=== PATIENT | female | born 1995 | race African-American/Black ===

== ENCOUNTER 2020-11-29 06:36 | Emergency (ER) | payer MEDICAID ==
[2020-11-29] MEDS ORDERED: Sodium Chloride 0.9% 10 ML Syringe FLUSH PRN (06:59)
[2020-11-29] MEDS ORDERED: Ondansetron 4 MG/2 ML SDV IVPUSH ONE (06:59)
[2020-11-29] MEDS ORDERED: Sodium Chloride 0.9% 1,000 ML IV STA (06:59)
[2020-11-29] MEDS ORDERED: HYDROmorphone 0.5 MG/0.5 ML Syringe IVPUSH ONE (07:00)
--- NOTE | 2020-11-29 07:06 | EDM.PDOC ---
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 This all started this weekend. Her LNMP was October 26. She was supposed to get he period this weekend and she felt like she was but nothing happened. On Friday she developed nausea and pelvic and abdominal cramping. This has continued. She has no fever, chills, cough, chest pain, shortness of breath, vomiting, diarrhea or dysuria. She does say that she has some urinary frequency. She may be . Onset: Gradual Duration: Day(s): Location: Reports: Abdomen, Pelvis Quality: Reports: Other (cramping) Severity: Severe Improves with: Reports: None Worsens with: Reports: None Associated Symptoms: Reports: Nausea/Vomiting. 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 Denies: Diarrhea, Vomiting : Reports: No Symptoms Musculoskeletal: Reports: No Symptoms Skin: Reports: No Symptoms Neurological: Reports: No Symptoms ED EXAM, GI/ABD - Physical Exam Exam: See Below Exam Limited By: No Limitations General Appearance: Alert, No Apparent Distress Ears: Normal External Exam Nose: Normal Inspection Head: Atraumatic, Normocephalic Neck: Normal Inspection Respiratory/Chest: No Respiratory Distress, Lungs Clear, Normal Breath Sounds Cardiovascular: Regular Rate, Rhythm, No Edema, No Murmur GI/Abdominal Exam: Soft, No Organomegaly, No Mass, Tender (Moderate generalized abdominal pain more severe in the left lower abdomen) Course - Vital Signs Last Recorded V/S: Last Vital Signs Temp 98.6 F 11/29/20 06:46 Pulse 60 11/29/20 06:46 Resp 20 11/29/20 06:46 BP 133/89 11/29/20 06:46 Pulse Ox 100 11/29/20 06:46 - Orders/Labs/Meds Orders: Active Orders 24 hr Category Date Time Status Peripheral IV Care [RC] . DIRECTED Care 11/29/20 07:00 Active Sodium Chloride 0.9% [Saline Flush] Med 11/29/20 06:59 Active 10 ml FLUSH ASDIRECTED PRN ED Antiemetic Medication Reflex [OM.PC] Stat Oth 11/29/20 07:00 Ordered Peripheral IV Insertion Adult [OM.PC] Stat Oth 11/29/20 06:59 Ordered Medication Orders Sodium Chloride (Sodium Chloride 0.9% 10 Ml Syringe) 10 ml FLUSH ASDIRECTED PRN PRN Reason: Keep Vein Open Last Admin: 11/29/20 07:28 Dose: 10 ml Documented by: FRANCISCO Labs: Laboratory Tests 11/29/20 11/29/20 11/29/20 Range/Units 07:15 07:15 07:20 WBC 4.98 (3.98-10.04) K/mm3 RBC 4.34 (3.98-5.22) M/mm3 Hgb 10.8 L (11.2-15.7) gm/dl Hct 34.6 (34.1-44.9) % MCV 79.7 (79.4-94.8) fl MCH 24.9 L (25.6-32.2) pg MCHC 31.2 L (32.2-35.5) g/dl RDW Std Deviation 40.4 (36.4-46.3) fL Plt Count 418 H (182-369) K/mm3 MPV 9.1 L (9.4-12.3) fl Neut % (Auto) 46.6 (34.0-71.1) % Lymph % (Auto) 43.8 (19.3-51.7) % [place] % (Auto) 7.2 (4.7-12.5) % Eos % (Auto) 1.8 (0.7-5.8) Baso % (Auto) 0.6 (0.1-1.2) % Neut # (Auto) 2.32 (1.56-6.13) K/mm3 Lymph # (Auto) 2.18 (1.18-3.74) K/mm3 [place] # (Auto) 0.36 (0.24-0.36) K/mm3 Eos # (Auto) 0.09 (0.04-0.36) K/mm3 Baso # (Auto) 0.03 (0.01-0.08) K/mm3 Sodium (136-145) mEq/L Potassium (3.5-5.1) mEq/L Chloride (98-107) mEq/L Carbon Dioxide (21-32) mEq/L Anion Gap (5-15) BUN (7-18) mg/dL Creatinine (0.55-1.02) mg/dL Est Cr Clr Drug Dosing mL/min Estimated GFR (MDRD) (>60) mL/min BUN/Creatinine Ratio (14-18) Glucose (70-99) mg/dL Calcium (8.5-10.1) mg/dL Total Bilirubin (0.2-1.0) mg/dL AST (15-37) U/L ALT (14-59) U/L Alkaline Phosphatase (46-116) U/L Total Protein (6.4-8.2) g/dl Albumin (3.4-5.0) g/dl Globulin gm/dL Albumin/Globulin Ratio (1-2) Lipase (73-393) U/L Urine Color Yellow (Yellow) Urine Appearance Clear (Clear) Urine pH 7.5 (5.0-8.0) Ur Specific [place] 1.020 (1.005-1.030) Urine Protein Negative (Negative) Urine Glucose (UA) Negative (Negative) Urine Ketones Negative (Negative) Urine Occult Blood 1+ H (Negative) Urine Nitrite Negative (Negative) Urine Bilirubin Negative (Negative) Urine Urobilinogen 1.0 (0.2-1.0) Ur Leukocyte Esterase Negative (Negative) Urine RBC 0-5 (0-5) /hpf Urine WBC 0-5 (0-5) /hpf Ur Squamous Epith Cells 0-5 (0-5) /hpf Amorphous Sediment Few H (NOT SEEN) /hpf Urine Bacteria Few (FEW) /hpf Urine Mucus Few (FEW) /hpf Urine HCG, Qual Negative (NEGATIVE) 11/29/20 Range/Units 07:20 WBC (3.98-10.04) K/mm3 RBC (3.98-5.22) M/mm3 Hgb (11.2-15.7) gm/dl Hct (34.1-44.9) % MCV (79.4-94.8) fl MCH (25.6-32.2) pg MCHC (32.2-35.5) g/dl RDW Std Deviation (36.4-46.3) fL Plt Count (182-369) K/mm3 MPV (9.4-12.3) fl Neut % (Auto) (34.0-71.1) % Lymph % (Auto) (19.3-51.7) % [place] % (Auto) (4.7-12.5) % Eos % (Auto) (0.7-5.8) Baso % (Auto) (0.1-1.2) % Neut # (Auto) (1.56-6.13) K/mm3 Lymph # (Auto) (1.18-3.74) K/mm3 [place] # (Auto) (0.24-0.36) K/mm3 Eos # (Auto) (0.04-0.36) K/mm3 Baso # (Auto) (0.01-0.08) K/mm3 Sodium 142 (136-145) mEq/L Potassium 3.5 (3.5-5.1) mEq/L Chloride 105 (98-107) mEq/L Carbon Dioxide 27 (21-32) mEq/L Anion Gap 13.5 (5-15) BUN 8 (7-18) mg/dL Creatinine 0.8 (0.55-1.02) mg/dL Est Cr Clr Drug Dosing 80.41 mL/min Estimated GFR (MDRD) > 60 (>60) mL/min BUN/Creatinine Ratio 10.0 L (14-18) Glucose 136 H (70-99) mg/dL Calcium 8.8 (8.5-10.1) mg/dL Total Bilirubin 0.3 (0.2-1.0) mg/dL AST 17 (15-37) U/L ALT 33 (14-59) U/L Alkaline Phosphatase 85 (46-116) U/L Total Protein 7.1 (6.4-8.2) g/dl Albumin 3.6 (3.4-5.0) g/dl Globulin 3.5 gm/dL Albumin/Globulin Ratio 1.0 (1-2) Lipase 82 (73-393) U/L Urine Color (Yellow) Urine Appearance (Clear) Urine pH (5.0-8.0) Ur Specific [place] (1.005-1.030) Urine Protein (Negative) Urine Glucose (UA) (Negative) Urine Ketones (Negative) Urine Occult Blood (Negative) Urine Nitrite (Negative) Urine Bilirubin (Negative) Urine Urobilinogen (0.2-1.0) Ur Leukocyte Esterase (Negative) Urine RBC (0-5) /hpf Urine WBC (0-5) /hpf Ur Squamous Epith Cells (0-5) /hpf Amorphous Sediment (NOT SEEN) /hpf Urine Bacteria (FEW) /hpf Urine Mucus (FEW) /hpf Urine HCG, Qual (NEGATIVE) Meds: Medications Generic Name Dose Route Start Last Admin Trade Name Yuliana PRN Reason Stop Dose Admin Sodium Chloride 10 ml 11/29/20 06:59 11/29/20 07:28 Sodium Chloride 0.9% 10 Ml Syringe FLUSH 10 ml ASDIRECTED PRN Administration Keep Vein Open Discontinued Medications Generic Name Dose Route Start Last Admin Trade Name Yuliana PRN Reason Stop Dose Admin Hydromorphone HCl 0.5 mg 11/29/20 07:00 11/29/20 07:28 Hydromorphone 0.5 Mg/0.5 Ml Syringe IVPUSH 11/29/20 07:01 0.5 mg ONETIME ONE Administration Sodium Chloride 1,000 mls @ 1,000 mls/hr 11/29/20 06:59 11/29/20 07:28 Normal Saline IV 11/29/20 07:58 1,000 mls/hr .BOLUS STA Administration Ondansetron HCl 4 mg 11/29/20 06:59 11/29/20 07:29 Ondansetron 4 Mg/2 Ml Sdv IVPUSH 11/29/20 07:00 4 mg ONETIME ONE Administration - Re-Assessments/Exams Free Text/Narrative Re-Assessment/Exam: 11/29/20 07:05 I ordered an IV NS 1L bolus, zofran 4mg IV, dilaudid 0.5mg IV, labs and UA. 11/29/20 09:59 Her CBC and CMP look good. Her UA shows no UTI. She tells me about 2 weeks ago she was evaluated at a clinic in [facility] and she was positive for trich. She has not felt 100% since then. I did a wet prep and it was negative. My nurse did g et her in to see Dr Jaramillo tomorrow. Departure - Departure Time of Disposition: 10:00 Disposition: Home, Self-Care 01 Condition: Good Clinical Impression: Pelvic pain - Discharge Information *PRESCRIPTION DRUG MONITORING PROGRAM REVIEWED*: Not Applicable *COPY OF PRESCRIPTION DRUG MONITORING REPORT IN PATIENT ELIECER: Not Applicable Prescriptions: Hydrocodone/Acetaminophen [Hydrocodone-Acetamin 5-325 mg] 1 - 2 each PO Q6H PRN #15 tablet PRN Reason: Pain Referrals: PCP,None [Primary Care Provider] - Delmer Jaramillo MD [Physician] - 1 Day Forms: ED Department Discharge, ED Return to Work/School Form Additional Instructions: Drink plenty of fluids. Take tylenol or motrin for pain. If that does not help, try the hydrocodone. Follow up with Dr Jaramillo tomorrow at 2pm. Check in at 1:30 tomorrow. Please return if you are worse. Sepsis Event Note (ED) - Evaluation Sepsis Screening Result: No Definite Risk - Focused Exam Vital Signs: Vital Signs Temp Pulse Resp BP Pulse Ox 11/29/20 06:46 98.6 F 60 20 133/89 100 - My Orders Last 24 Hours: My Active Orders 11/29/20 06:59 Sodium Chloride 0.9% [Saline Flush] 10 ml FLUSH ASDIRECTED PRN Peripheral IV Insertion Adult [OM.PC] Stat 11/29/20 07:00 Peripheral IV Care [RC] . DIRECTED ED Antiemetic Medication Reflex [OM.PC] Stat - Assessment/Plan Last 24 Hours: My Active Orders 11/29/20 06:59 Sodium Chloride 0.9% [Saline Flush] 10 ml FLUSH ASDIRECTED PRN Peripheral IV Insertion Adult [OM.PC] Stat 11/29/20 07:00 Peripheral IV Care [RC] . DIRECTED ED Antiemetic Medication Reflex [OM.PC] Stat
== END 2020-11-29 10:20 | disposition home or self-care (01) ==
LOC: JD.ED 06:36
DX: R10.2 Pelvic and perineal pain (principal); Z88.0 Allergy status to penicillin
CPT/HCPCS: 36415; 80053; 81001; 81025; 83690; 85025; 87210; 87808; 96374; 96375; 99284; J1170; J2405; J7030; 99283

== ENCOUNTER 2021-01-22 13:42 | Emergency (ER) | payer MEDICAID ==
--- NOTE | 2021-01-22 15:35 | EDM.PDOC ---
ED HPI GENERAL MEDICAL PROBLEM - General Chief Complaint: Lower Extremity Injury/Pain Stated Complaint: LEFT LEG PAIN Time Seen by Provider: 01/22/21 15:20 Source of Information: Reports: Patient History Limitations: Reports: No Limitations - History of Present Illness INITIAL COMMENTS - FREE TEXT/NARRATIVE: 25-year-old female presents to the ED with chief complaint of severe pain in her left anterior medial thigh. Patient states no she knows of no injury or trauma. Started to have left quadriceps muscle pain yesterday which is progressed to the point that she can barely walk today. Leg has given out on her twice today causing her to fall once. She banged up her left lateral hip over the greater trochanteric process when she fell this morning. Pain is primarily felt throughout the quadriceps musculature anterior aspect of the leg but is particularly very tender medially. She has mild pain in the quadriceps when she flexes or dorsiflexes her left ankle as well. She states she is walking straight legged. 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 She is not using any oral contraceptives. Onset: Gradual Onset Date: 01/21/21 Duration: Hour(s):, Getting Worse Location: Reports: Lower Extremity, Left (Primarily in the distribution of the quadriceps) Quality: Reports: Ache ( muscles but worse medial aspect of the leg.), Throbbing Severity: Moderate Improves with: Reports: Rest Worsens with: Reports: Other (Worse with attempt to try and walk. She cannot) Context: Reports: Other (No known injury or trauma). Denies: Activity ( lift it high enough to go up a stair.), Exercise, Lifting, Sick Contact, Trauma Associated Symptoms: Reports: No Other Symptoms. Denies: Confusion, Chest Pain, Cough, cough w sputum, Diaphoresis, Fever/Chills, Headaches, Loss of Appetite, Malaise, Nausea/Vomiting, Rash, Seizure, Shortness of Breath, Syncope, Weakness Treatments LAST TRIMMER: Reports: Acetaminophen Left Leg Pain Score (Numeric/FACES): 7 - Related Data Allergies Allergy/AdvReac Type Severity Reaction Status Date / Time amoxicillin Allergy Severe Itching Verified 01/22/21 13:51 Home Meds: Home Meds . 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: Reports: Endocrine/Metabolic History: Reports: Obesity/BMI 30+ - Infectious Disease History Infectious Disease History: Reports: None - Past Surgical History Musculoskeletal Surgical History: Reports: Other (See Below) Other Musculoskeletal Surgeries/Procedures:: Right Leg Surgery Social & Family History - Tobacco Use Tobacco Use Status *Q: Never Tobacco User - Caffeine Use Caffeine Use: Reports: Energy Drinks - Recreational Drug Use Recreational Drug Use: No - Living Situation & Occupation Living situation: Reports: Occupation: Employed Review of Systems - Review of Systems Review Of Systems: See Below Constitutional: Reports: No Symptoms Eyes: Reports: No Symptoms Ears: Reports: No Symptoms Nose: Reports: No Symptoms Mouth/Throat: Reports: No Symptoms Respiratory: Reports: No Symptoms Cardiovascular: Reports: No Symptoms GI/Abdominal: Reports: No Symptoms Genitourinary: Reports: No Symptoms Musculoskeletal: Reports: Other (Left anterior leg pain in the distribution of the quadriceps musculature). Denies: Back Pain Skin: Reports: No Symptoms Neurological: Reports: No Symptoms Psychiatric: Reports: No Symptoms ED EXAM, GENERAL - Physical Exam Exam: See Below Exam Limited By: No Limitations General Appearance: Alert, WD/WN, No Apparent Distress, Other (Temperature is 36.0. Heart rate 89 is sinus respiratory to 16 with O2 sats of 99% room air BP is 122/76) Eye Exam: Bilateral Eye: Normal Inspection (No blepharal pallor or scleral icterus), PERRL Throat/Mouth: Normal Inspection, Normal Lips, Normal Oropharynx Respiratory/Chest: No Respiratory Distress, Lungs Clear, Normal Breath Sounds, No Accessory Muscle Use Cardiovascular: Normal Peripheral Pulses, Regular Rate, Rhythm, No Edema, No Gallop, No Murmur, No Rub Peripheral Pulses: 2+: Posterior Tibial (L), Posterior Tibial (R), Dorsalis Pedis (L), Dorsalis Pedis (R), 3+: Carotid (L), Carotid (R) GI/Abdominal: Normal Bowel Sounds, Soft, Non-Tender, No Organomegaly, No Mass, Pelvis Stable, Other (Mildly obese) Back Exam: Normal Inspection, Full Range of Motion. No: CVA Tenderness (L), CVA Tenderness (R) Extremities: Normal Inspection, No Pedal Edema, Leg Pain (Left leg pain primarily in the distribution of the femur), Other (Patient has diffuse tenderness throughout all of her quadriceps musculature left anterior leg particularly medially. The left lower leg is also slightly taut on examination as compared to the right. There is increased pain in the quadriceps he with dorsiflexing the foot). No: Normal Range of Motion, Slow Capillary Refill, Joint Swelling, Arm Pain, Devaughn's Sign Neurological: Alert, Oriented, CN II-XII Intact, Normal Cognition Psychiatric: Normal Affect, Normal Mood Skin Exam: Warm, Dry, Intact, Normal Color, No Rash Course - Vital Signs Last Recorded V/S: Last Vital Signs Temp 36.0 C L 01/22/21 13:48 Pulse 89 01/22/21 13:48 Resp 16 01/22/21 13:48 BP 122/76 01/22/21 13:48 Pulse Ox 99 01/22/21 13:48 - Radiology Interpretation Free Text/Narrative:: 25-year-old female of -[place] descent presents to the ED for evaluation of diffuse left anterior leg pain primarily in the distribution of her quadriceps muscles. Pain is worsened by flexing the quadriceps muscle. She is having difficulty walking and does not believe she could walk upstairs at this time. The lower extremity also appears a bit taut but no definitive evidence of a DVT. It appears that she is somehow suffered a quadriceps strain but she does not have any history of trauma. She has no history of recent vigorous exercise over the weekend. The leg is giving out on her twice causing her to fall today. 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 Plan x-ray of the left femur. Ultrasound of the left leg to be done. - Re-Assessments/Exams Free Text/Narrative Re-Assessment/Exam: 01/22/21 16:23 x-ray of the left femur shows joint space within the left hip is maintained. Joint space within the left knee appears well-preserved. No acute fracture or other bony abnormalities are appreciated 01/22/21 16:38 Doppler ultrasound of the left leg has been completed. Left lower extremity deep venous ultrasound evaluation was obtained from the left common femoral, proximal greater saphenous, superficial femoral, popliteal, posterior tibial and the peroneal veins. The right common femoral vein was also evaluated no prior venous imaging is available. Visualized veins show normal phasic flow and augmentation and compression. No findings of deep venous thrombosis within the left lower extremity. 01/22/21 16:45 patient advised that no bony abnormalities or venous occlusion abnormalities are identified within the left lower extremity. It appears that somehow she is strained her quadriceps musculature which is causing current pain syndrome and her left leg to give out on her. Plan will be to wrap her left thigh with an Atul wrap on during the day and off at night crutch use as needed for the next 7 to 10 days. Departure - Departure Time of Disposition: 16:45 Disposition: Home, Self-Care 01 Condition: Fair Clinical Impression: Strain of left quadriceps muscle, fascia and tendon, initial encounter - Discharge Information *PRESCRIPTION DRUG MONITORING PROGRAM REVIEWED*: Not Applicable *COPY OF PRESCRIPTION DRUG MONITORING REPORT IN PATIENT ELIECER: Not Applicable Instructions: Quadriceps Strain, Quadriceps Strain Rehab-SportsMed Referrals: PCP,None [Primary Care Provider] - Forms: ED Department Discharge, ED Return to Work/School Form Additional Instructions: Evaluation in the emergency room today in regards to development of severe pain within the quadriceps muscle of your anterior left thigh. No known trauma or fall or near fall to have caused this. There was slight increase fluid within your left calf on examination and therefore a Doppler ultrasound was performed to make sure there was no underlying blood clot within the left upper extremity and none was found. X-ray of the left femur which include your hip and knee did not reveal any bony abnormalities. Injury is muscular in origin a quadriceps tear which then bleeds within the muscle causing pain syndrome especially when the muscle contracts. As you have identified the left leg will give out on you intermittently today causing you to fall. Treatment is to be Atul wrap on during the day and off at night around the quadriceps musculature. Ice pack to the left leg anteriorly today for 1/2-hour out of every 3 hours and may start using hot packs to the same area for 1/2-hour out of every 3 hours tomorrow. Motrin 600 mg every 6 hours to relieve pain and inflammation. Suggest nonweightbearing crutch walking for the next 5 to 7 days until you can walk without hardly any pain. Note given to excuse you from the workplace for the next 7 to 10 days. Sepsis Event Note (ED) - Evaluation Sepsis Screening Result: No Definite Risk - Focused Exam Vital Signs: Vital Signs Temp Pulse Resp BP Pulse Ox 01/22/21 13:48 36.0 C L 89 16 122/76 99
--- NOTE | 2021-01-22 16:03 | CR ---
Left femur: AP and lateral views of the left femur were obtained. Comparison: No prior femur study is available. Joint space within the left hip is maintained. Joint space within the left knee appears preserved. No acute fracture or other bony abnormality is appreciated. Impression: 1. No abnormality is identified on 2 view left femur exam. Diagnostic code #1
--- NOTE | 2021-01-22 16:32 | US ---
Left lower extremity deep venous ultrasound: Duplex and color Doppler evaluation was obtained of the left common femoral, proximal greater saphenous, superficial femoral, popliteal, posterior tibial and peroneal veins. Right common femoral vein was also evaluated. Comparison: No prior venous imaging is available. Findings: Visualized veins show normal phasic flow, augmentation and compression. Impression: 1. No findings of deep venous thrombosis within the left lower extremity or within the right common femoral vein. Diagnostic code #1
== END 2021-01-22 17:08 | disposition home or self-care (01) ==
LOC: JD.ED 13:42
DX: S76.112A Strain of left quadriceps muscle, fascia and tendon, initial encounter (principal); E66.9 Obesity, unspecified; Z68.34 Body mass index [BMI] 34.0-34.9, adult; Z88.0 Allergy status to penicillin; X58.XXXA Exposure to other specified factors, initial encounter
CPT/HCPCS: 73552-26-LT; 73552-LT; 93971-26-LT; 93971-LT; 99283; 99284-25

== ENCOUNTER → 2021-02-20 15:00 | Emergency (ER) | payer MEDICAID | END | disposition left against medical advice (07) | LOC: JD.ED 15:00 | DX: Z53.21 Procedure and treatment not carried out due to patient leaving prior to being seen by health care provider (principal) ==

== ENCOUNTER 2021-03-22 09:39 | Emergency (ER) | payer MEDICAID ==
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
[2021-03-22 12:59] LABS: C. TRACHOMATIS BY PCR NOT DETECTED; N. GONORRHOEAE BY PCR NOT DETECTED
[2021-03-22] MEDS ORDERED: cefTRIAXone 250 MG, Lidocaine 1% 0.9 ML IM ONE ×2 (13:37)
[2021-03-22] MEDS ORDERED: Azithromycin 250 MG Tab PO ONE (13:37)
== END 2021-03-22 13:52 | disposition home or self-care (01) ==
LOC: JD.ED 09:39
DX: N76.0 Acute vaginitis (principal); B96.89 Other specified bacterial agents as the cause of diseases classified elsewhere; E66.9 Obesity, unspecified; Z68.35 Body mass index [BMI] 35.0-35.9, adult; Z88.0 Allergy status to penicillin
CPT/HCPCS: 36415; 84702; 87210; 87491; 87591; 87808; 96372; 99283; A9270; J0696

== ENCOUNTER 2021-04-01 04:41 | Emergency (ER) | payer MEDICAID ==
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
--- NOTE | 2021-04-01 08:48 | CR ---
Right hand: 3 views of the right hand were obtained. Comparison: No prior right hand study is available. Joint spaces are preserved. No fracture, dislocation or other bony abnormality is seen. Impression: 1. Nothing acute is seen on 3 view right hand exam. Diagnostic code #1
--- NOTE | 2021-04-01 08:53 | CT ---
Head CT Technique: Multiple axial sections through the brain were obtained. Intravenous contrast was not utilized. Reconstructed coronal and sagittal images were obtained. Comparison: No prior intracranial imaging is available. Findings: Ventricles along wth basal cisterns and sulci over the convexities are within normal limits for the patient's age. No abnormal parenchymal densities are seen. No evidence of intracranial hemorrhage is seen. No midline shift or mass-effect is seen. Bone window settings were reviewed. Visualized mastoid sinuses and paranasal sinuses show nothing acute. No acute calvarial abnormality is appreciated. Impression: 1. Nothing acute is seen on noncontrast head CT study. Diagnostic code #1 I agree with preliminary report from [facility], finalized on 04/01/21, 7:24 AM TRANSPORT DRIVER, code 1
== END 2021-04-01 09:10 | disposition home or self-care (01) ==
LOC: JD.ED 04:41
DX: F10.129 Alcohol abuse with intoxication, unspecified (principal); E66.9 Obesity, unspecified; Z88.0 Allergy status to penicillin; Z86.16 Personal history of COVID-19
CPT/HCPCS: 70450; 70450-26; 73130-26-RT; 73130-RT; 81025; 99284; 99285-25

== ENCOUNTER 2021-08-18 23:06 | Emergency (ER) | payer MEDICAID ==
[2021-08-18] MEDS ORDERED: Alum Hydrox/Mag Hydrox/Simeth 30 ML, Lidocaine 2% 15 ML PO ONE ×2 (23:42)
[2021-08-18] MEDS ORDERED: Ondansetron 4 MG Tab.DIS PO ONE (23:42)
[2021-08-19] MEDS ORDERED: Ketorolac 15 MG/ML SDV IM ONE (00:45)
[2021-08-19] MEDS ORDERED: Magnesium Citrate Solution 296 ML Bottle PO ONE (01:11)
== END 2021-08-19 01:32 | disposition home or self-care (01) ==
LOC: JD.ED 23:06
DX: R10.10 Upper abdominal pain, unspecified (principal); R11.0 Nausea; E66.9 Obesity, unspecified; Z68.36 Body mass index [BMI] 36.0-36.9, adult; Z88.0 Allergy status to penicillin
CPT/HCPCS: 36415; 80053; 81001; 81025; 83690; 85025; 96372; 99284; A9270; J1885

== ENCOUNTER 2022-07-27 14:29 | Emergency (ER) | payer MEDICAID ==
[2022-07-27] MEDS ORDERED: Sodium Chloride 0.9% 1,000 ML IV STA (15:22)
[2022-07-27] MEDS ORDERED: Sodium Chloride 0.9% 10 ML Syringe FLUSH PRN (15:22)
[2022-07-27] MEDS ORDERED: Metoclopramide 10 MG/2 ML SDV IVPUSH ONE (15:22)
[2022-07-27] MEDS ORDERED: diphenhydrAMINE 50 MG/ML SDV IVPUSH ONE (15:25)
[2022-07-27] MEDS ORDERED: HYDROmorphone 0.5 MG/0.5 ML Syringe IVPUSH ONE (15:26)
[2022-07-27 18:37] LABS: CORONAVIRUS COVID-19 NAA NEGATIVE (NEGATIVE)
== END 2022-07-27 18:55 | disposition home or self-care (01) ==
LOC: JD.ED 14:29
DX: O99.891 Other specified diseases and conditions complicating pregnancy (principal); R51.9 Headache, unspecified; O21.9 Vomiting of pregnancy, unspecified; O99.212 Obesity complicating pregnancy, second trimester; Z88.0 Allergy status to penicillin; Z86.16 Personal history of COVID-19; Z20.822 Contact with and (suspected) exposure to COVID-19; Z3A.14 14 weeks gestation of pregnancy
CPT/HCPCS: 0241U; 36415; 80053; 81001; 83690; 84702; 85025; 96361; 96374; 96375; 99284; J1170; J1200; J2765; J3490; J7030

== ENCOUNTER 2022-09-20 08:26 | Emergency (ER) | payer MEDICAID ==
[2022-09-20 09:51] LABS: BASOPHILS ABSOLUTE AUTO 0.01 K/mm3 (0.01-0.08); BASOPHILS PERCENT AUTO 0.2 % (0.1-1.2); EOSINOPHILS ABSOLUTE AUTO 0.06 K/mm3 (0.04-0.36); EOSINOPHILS PERCENT AUTO 1.4 (0.7-5.8); HEMATOCRIT 31.5 % (34.1-44.9); LYMPHOCYTES ABSOLUTE AUTO 1.64 K/mm3 (1.18-3.74); LYMPHOCYTES PERCENT AUTO 39.1 % (19.3-51.7); MEAN CORPUSCULAR HEMOGLOBIN 25.3 pg (25.6-32.2); MEAN CORPUSCULAR HGB CONC 31.7 g/dl (32.2-35.5); MEAN CORPUSCULAR VOLUME 79.7 fl (79.4-94.8); MEAN PLATELET VOLUME 8.8 fl (9.4-12.3); MONOCYTES ABSOLUTE AUTO 0.32 K/mm3 (0.24-0.36); MONOCYTES PERCENT AUTO 7.6 % (4.7-12.5); NEUTROPHILS ABSOLUTE AUTO 2.16 K/mm3 (1.56-6.13); NEUTROPHILS PERCENT AUTO 51.7 % (34.0-71.1); RED BLOOD CELL COUNT 3.95 M/mm3 (3.98-5.22); WHITE BLOOD CELL COUNT,WBC 4.19 K/mm3 (3.98-10.04)
[2022-09-20 09:52] LABS: PLATELET COUNT,PLT 372 K/mm3 (182-369)
[2022-09-20 10:10] LABS: INR 0.94; PROTHROMBIN TIME 10.1 SECONDS (9.7-12.0)
[2022-09-20 10:11] LABS: PTT,PARTIAL THROMBOPLSTIN TIME 27.9 SECONDS (21.7-31.4)
== END 2022-09-20 11:09 | disposition home or self-care (01) ==
LOC: JD.ED 08:26
DX: O99.891 Other specified diseases and conditions complicating pregnancy (principal); R10.9 Unspecified abdominal pain; O99.212 Obesity complicating pregnancy, second trimester; Z88.0 Allergy status to penicillin; Z3A.18 18 weeks gestation of pregnancy; Z86.16 Personal history of COVID-19; Z77.22 Contact with and (suspected) exposure to environmental tobacco smoke (acute) (chronic)
CPT/HCPCS: 36415; 76815; 76815-26; 85025; 85384; 85610; 85730; 99283; 99284

== ENCOUNTER 2023-10-25 12:41 | Emergency (ER) | payer MEDICAID ==
[2023-10-25] MEDS: Sodium Chloride 0.9% 10 ML Syringe FLUSH PRN (13:11)
[2023-10-25] MEDS: Sodium Chloride 0.9% 1,000 ML IV STA (13:12)
[2023-10-25] MEDS: Ondansetron 4 MG/2 ML SDV IVPUSH ONE (13:12)
[2023-10-25] MEDS: HYDROmorphone 0.5 MG/0.5 ML Syringe IVPUSH ONE (13:13)
[2023-10-25 13:30] LABS: BASOPHILS PERCENT AUTO 0.4 % (0.0-1.0); EOSINOPHILS ABSOLUTE AUTO 0.1 K/mm3 (0.0-0.4); EOSINOPHILS PERCENT AUTO 0.6 % (0.0-6.0); HEMATOCRIT 42.6 % (37.0-47.0); HEMOGLOBIN 13.2 gm/dl (12.0-16.0); IMMATURE GRAN ABSOLUTE AUTO 0.04 K/mm3 (0.00-0.05); IMMATURE GRAN PERCENT AUTO 0.4 % (0.0-0.4); LYMPHOCYTES ABSOLUTE AUTO 2.2 K/mm3 (1.0-4.8); LYMPHOCYTES PERCENT AUTO 22.9 % (24.0-44.0); MEAN CORPUSCULAR HEMOGLOBIN 24.7 pg (28.0-32.0); MEAN CORPUSCULAR VOLUME 79.8 fl (83.0-99.0); MEAN PLATELET VOLUME 9.1 fl (9.4-12.3); MONOCYTES ABSOLUTE AUTO 0.5 K/mm3 (0.0-0.8); MONOCYTES PERCENT AUTO 4.8 % (0.0-8.0); NEUTROPHILS ABSOLUTE AUTO 6.8 K/mm3 (1.8-7.7); NEUTROPHILS PERCENT AUTO 70.9 % (41.0-71.0); PLATELET COUNT,PLT 498 K/mm3 (150-400); RED BLOOD CELL COUNT 5.34 M/mm3 (4.10-5.30); WHITE BLOOD CELL COUNT,WBC 9.64 K/mm3 (3.9-11.3)
[2023-10-25 13:31] LABS: APPEARANCE,URINE CLEAR (Clear); BILIRUBIN,URINE NEGATIVE (Negative); COLOR,URINE YELLOW (Yellow); GLUCOSE,URINE NEGATIVE (Negative); KETONES,URINE TRACE (Negative); LEUKOCYTE ESTERASE,URINE 1+ (Negative); NITRITE,URINE NEGATIVE (Negative); OCCULT BLOOD,URINE NEGATIVE (Negative); PROTEIN,URINE NEGATIVE (Negative); UROBILINOGEN,URINE 0.2 (0.2-1.0)
[2023-10-25 13:40] LABS: AMPHETAMINES SCREEN, URINE PRESUMPTIVE POSITIVE (CUTOFF=500); BARBITURATE SCREEN,URINE NEGATIVE (CUTOFF=200); BENZODIAZEPINES SCREEN,URINE NEGATIVE (CUTOFF=150); BUPRENORPHINE SCREEN,URINE NEGATIVE (CUTOFF=10); METHADONE SCREEN, URINE NEGATIVE (CUTOFF=200); METHAMPHETAMINES SCREEN, URINE PRESUMPTIVE POSITIVE (CUTOFF=500); OXYCODONE SCREEN,URINE NEGATIVE (CUT0FF=100); THC SCREEN,URINE 20 NG/ML PRESUMPTIVE POSITIVE (CUTOFF=50)
[2023-10-25 13:48] LABS: A/G RATIO 1.1 (1-2); ALBUMIN 4.2 g/dl (3.4-5.0); ANION GAP 15.8 (5-15); BILIRUBIN TOTAL 0.6 mg/dL (0.2-1.0); C-REACTIVE PROTEIN 0.16 mg/dL (<0.30); CALCIUM 9.4 mg/dL (8.5-10.1); EST CRCL DRUG DOSING (CG) 62.64 mL/min; POTASSIUM,K 3.8 mEq/L (3.5-5.1); PROTEIN TOTAL,TP 8.1 g/dl (6.4-8.2)
[2023-10-25 13:51] LABS: BACTERIA,URINE FEW /hpf (FEW); MUCUS,URINE FEW /hpf (FEW); RBC,URINE 0-5 /hpf (0-5); SQUAMOUS EPITHELIAL CELLS,UR 0-5 /hpf (0-5); WBC,URINE 0-5 /hpf (0-5)
[2023-10-25] MEDS: Dicyclomine 10 MG Cap PO ONE (14:17)
== END 2023-10-25 14:51 | disposition home or self-care (01) ==
LOC: JD.ED 12:41
DX: R10.84 Generalized abdominal pain (principal); R11.2 Nausea with vomiting, unspecified; R82.5 Elevated urine levels of drugs, medicaments and biological substances; I10 Essential (primary) hypertension; E66.9 Obesity, unspecified; Z88.0 Allergy status to penicillin; Z68.34 Body mass index [BMI] 34.0-34.9, adult
CPT/HCPCS: 36415; 80053; 80306; 81001; 83690; 84703; 85025; 86140; 87086; 96361; 96374; 96375; 99284; 99284-25; A9270-GY; J1170; J2405; J3490; J7030

== ENCOUNTER 2023-11-09 11:32 | Emergency (ER) | payer MEDICAID ==
[2023-11-09] MEDS: Diphtheria,Pertussis(Acell),Tetanus Vaccine 0.5 ML Syringe IM ONE (12:23)
== END 2023-11-09 14:45 ==
LOC: JD.ED 11:32
DX: S51.001A Unspecified open wound of right elbow, initial encounter (principal); S00.83XA Contusion of other part of head, initial encounter; Z23 Encounter for immunization; I10 Essential (primary) hypertension; E66.9 Obesity, unspecified; Z68.36 Body mass index [BMI] 36.0-36.9, adult; Z88.0 Allergy status to penicillin; W86.8XXA Exposure to other electric current, initial encounter
CPT/HCPCS: 70450; 70450-26; 71045; 71045-26; 90471; 90715; 93005; 93010; 99283; 99284-25

== ENCOUNTER 2023-12-18 13:13 | Emergency (ER) | payer MEDICAID ==
[2023-12-18 15:26] LABS: BASOPHILS PERCENT AUTO 0.7 % (0.0-1.0); EOSINOPHILS PERCENT AUTO 0.7 % (0.0-6.0); HEMATOCRIT 38.6 % (37.0-47.0); HEMOGLOBIN 12.4 gm/dl (12.0-16.0); IMMATURE GRAN ABSOLUTE AUTO 0.01 K/mm3 (0.00-0.05); IMMATURE GRAN PERCENT AUTO 0.2 % (0.0-0.4); LYMPHOCYTES PERCENT AUTO 51.7 % (24.0-44.0); MEAN CORPUSCULAR HEMOGLOBIN 25.8 pg (28.0-32.0); MEAN CORPUSCULAR HGB CONC 32.1 g/dl (32.0-36.0); MEAN CORPUSCULAR VOLUME 80.2 fl (83.0-99.0); MEAN PLATELET VOLUME 9.5 fl (9.4-12.3); MONOCYTES ABSOLUTE AUTO 0.4 K/mm3 (0.0-0.8); MONOCYTES PERCENT AUTO 6.8 % (0.0-8.0); NEUTROPHILS ABSOLUTE AUTO 2.3 K/mm3 (1.8-7.7); NEUTROPHILS PERCENT AUTO 39.9 % (41.0-71.0); PLATELET COUNT,PLT 441 K/mm3 (150-400); RED BLOOD CELL COUNT 4.81 M/mm3 (4.10-5.30); WHITE BLOOD CELL COUNT,WBC 5.73 K/mm3 (3.9-11.3)
[2023-12-18 16:06] LABS: APPEARANCE,URINE CLOUDY (Clear); BILIRUBIN,URINE NEGATIVE (Negative); COLOR,URINE RED (Yellow); GLUCOSE,URINE NEGATIVE (Negative); KETONES,URINE 1+ (Negative); LEUKOCYTE ESTERASE,URINE NEGATIVE (Negative); NITRITE,URINE NEGATIVE (Negative); OCCULT BLOOD,URINE 3+ (Negative); PROTEIN,URINE 1+ (Negative)
[2023-12-18] MEDS: Ketorolac 30 MG/ML SDV IM ONE (16:35)
[2023-12-18 16:40] LABS: BACTERIA,URINE FEW /hpf (FEW); MUCUS,URINE FEW /hpf (FEW); RBC,URINE TOO NUMEROUS TO CNT /hpf (0-5); SQUAMOUS EPITHELIAL CELLS,UR 0-5 /hpf (0-5); WBC,URINE 0-5 /hpf (0-5)
[2023-12-18] MEDS: Ketorolac 30 MG/ML SDV IVPUSH ONE (17:59)
== END 2023-12-18 17:55 | disposition home or self-care (01) ==
LOC: JD.ED 13:13
DX: N93.9 Abnormal uterine and vaginal bleeding, unspecified (principal); I10 Essential (primary) hypertension; E66.9 Obesity, unspecified; Z88.0 Allergy status to penicillin; Z79.899 Other long term (current) drug therapy; Z68.35 Body mass index [BMI] 35.0-35.9, adult
CPT/HCPCS: 36415; 76830; 81001; 84703; 85025; 96372; 99284; J1885

== ENCOUNTER 2024-01-07 02:17 | Emergency (ER) | payer MEDICAID ==
[2024-01-07 02:59] LABS: BASOPHILS PERCENT AUTO 0.4 % (0.0-1.0); EOSINOPHILS ABSOLUTE AUTO 0.1 K/mm3 (0.0-0.4); EOSINOPHILS PERCENT AUTO 0.8 % (0.0-6.0); HEMATOCRIT 36.4 % (37.0-47.0); HEMOGLOBIN 11.8 gm/dl (12.0-16.0); IMMATURE GRAN ABSOLUTE AUTO 0.02 K/mm3 (0.00-0.05); IMMATURE GRAN PERCENT AUTO 0.3 % (0.0-0.4); LYMPHOCYTES ABSOLUTE AUTO 1.7 K/mm3 (1.0-4.8); LYMPHOCYTES PERCENT AUTO 23.9 % (24.0-44.0); MEAN CORPUSCULAR HEMOGLOBIN 25.9 pg (28.0-32.0); MEAN CORPUSCULAR HGB CONC 32.4 g/dl (32.0-36.0); MEAN CORPUSCULAR VOLUME 79.8 fl (83.0-99.0); MEAN PLATELET VOLUME 9.1 fl (9.4-12.3); MONOCYTES ABSOLUTE AUTO 0.4 K/mm3 (0.0-0.8); NEUTROPHILS ABSOLUTE AUTO 4.9 K/mm3 (1.8-7.7); NEUTROPHILS PERCENT AUTO 68.6 % (41.0-71.0); PLATELET COUNT,PLT 391 K/mm3 (150-400); RED BLOOD CELL COUNT 4.56 M/mm3 (4.10-5.30); WHITE BLOOD CELL COUNT,WBC 7.15 K/mm3 (3.9-11.3)
[2024-01-07 03:17] LABS: APPEARANCE,URINE CLEAR (Clear); BILIRUBIN,URINE NEGATIVE (Negative); COLOR,URINE YELLOW (Yellow); GLUCOSE,URINE NEGATIVE (Negative); KETONES,URINE NEGATIVE (Negative); LEUKOCYTE ESTERASE,URINE NEGATIVE (Negative); NITRITE,URINE NEGATIVE (Negative); OCCULT BLOOD,URINE NEGATIVE (Negative); PH,URINE 6.5 (5.0-8.0); PROTEIN,URINE 2+ (Negative); UROBILINOGEN,URINE 0.2 (0.2-1.0)
[2024-01-07 03:20] LABS: A/G RATIO 1.2 (1-2); ALBUMIN 4.1 g/dl (3.4-5.0); ANION GAP 13.3 (5-15); BILIRUBIN TOTAL 0.6 mg/dL (0.2-1.0); C-REACTIVE PROTEIN 0.23 mg/dL (<0.30); CALCIUM 9.3 mg/dL (8.5-10.1); EST CRCL DRUG DOSING (CG) 62.64 mL/min; MAGNESIUM 1.7 mg/dL (1.8-2.4); POTASSIUM,K 3.3 mEq/L (3.5-5.1); PROTEIN TOTAL,TP 7.4 g/dl (6.4-8.2)
[2024-01-07 03:29] LABS: BACTERIA,URINE FEW /hpf (FEW); EPITHELIAL CELLS,URINE 0-5 /hpf (0-5); MUCUS,URINE MODERATE /hpf (FEW); RBC,URINE 0-5 /hpf (0-5); WBC,URINE 0-5 /hpf (0-5)
[2024-01-07 03:30] LABS: BARBITURATE SCREEN,URINE NEGATIVE (CUTOFF=200); BENZODIAZEPINES SCREEN,URINE NEGATIVE (CUTOFF=150); BUPRENORPHINE SCREEN,URINE NEGATIVE (CUTOFF=10); METHADONE SCREEN, URINE NEGATIVE (CUTOFF=200); METHAMPHETAMINES SCREEN, URINE NEGATIVE (CUTOFF=500); OXYCODONE SCREEN,URINE NEGATIVE (CUT0FF=100); THC SCREEN,URINE 20 NG/ML PRESUMPTIVE POSITIVE (CUTOFF=50)
[2024-01-07 03:33] LABS: AMPHETAMINES SCREEN, URINE NEGATIVE (CUTOFF=500)
[2024-01-07] MEDS: Acetaminophen 325 MG Tab PO ONE (04:31)
== END 2024-01-07 05:03 | disposition home or self-care (01) ==
LOC: JD.ED 02:17
DX: S00.03XA Contusion of scalp, initial encounter (principal); S00.83XA Contusion of other part of head, initial encounter; I10 Essential (primary) hypertension; Z88.0 Allergy status to penicillin; Y04.8XXA Assault by other bodily force, initial encounter
CPT/HCPCS: 36415; 70450; 70486; 80053; 80306; 80307; 81001; 83735; 84703; 85025; 86140; 99284; A9270; 99283

== ENCOUNTER 2024-04-23 17:24 | Emergency (ER) | payer MEDICAID ==
[2024-04-23] MEDS: Acetaminophen 325 MG Tab PO ONE (18:14)
== END 2024-04-23 18:43 ==
LOC: JD.ED 17:24
DX: S00.83XA Contusion of other part of head, initial encounter (principal); I10 Essential (primary) hypertension; E66.9 Obesity, unspecified; Z88.0 Allergy status to penicillin; W22.8XXA Striking against or struck by other objects, initial encounter; Z68.32 Body mass index [BMI] 32.0-32.9, adult
CPT/HCPCS: 70450; 99284; A9270; 99282

== ENCOUNTER 2024-11-05 10:35 | Emergency (ER) | payer MEDICAID, OTHER ==
[2024-11-05] MEDS: Acetaminophen 325 MG Tab PO ONE (10:53)
== END 2024-11-05 11:07 | disposition home or self-care (01) ==
LOC: JD.ED 10:35
DX: S01.81XA Laceration without foreign body of other part of head, initial encounter (principal); I10 Essential (primary) hypertension; Z88.0 Allergy status to penicillin; W22.8XXA Striking against or struck by other objects, initial encounter
CPT/HCPCS: 99283; A9270

== ENCOUNTER 2024-11-06 12:21 | Emergency (ER) | payer MEDICAID | END 2024-11-06 13:37 | disposition home or self-care (01) | LOC: JD.ED 12:21 | DX: S01.81XA Laceration without foreign body of other part of head, initial encounter (principal); I10 Essential (primary) hypertension; Z88.0 Allergy status to penicillin; W22.8XXA Striking against or struck by other objects, initial encounter; Y93.89 Activity, other specified | CPT/HCPCS: 99283 ==